=== PATIENT | male | born 1945 | race American Indian/Alaskan Native ===

== ENCOUNTER 2017-02-20 14:25 | Emergency (ER) | payer MEDICARE, OTHER ==
[2017-02-20] MEDS ORDERED: D50W (25GM) Syringe IV ONE ×2 (14:29→17:00)
[2017-02-20] MEDS ORDERED: NACL 0.9% 1000 ML 1,000 ML ONE (14:50)
[2017-02-20] MEDS ORDERED: NACL 0.9% 1000 ML 2,000 ML IV ONE (15:17)
--- NOTE | 2017-02-20 15:23 | Emergency Department Report ---
ED General Adult HPI - General Chief complaint: Cardiac Arrest/CPR Stated complaint: CARDIAC ARREST Time Seen by Provider: 02/20/17 15:13 Source: EMS (verbal report received from EMS.ems notes not available at time of chart dictation) Mode of arrival: Stretcher Limitations: Other - History of Present Illness Initial comments: This is a 71-year-old male who is brought to the hospital by EMS as an out of hospital cardiac arrest. EMS reports the patient had some point been complaining of abdominal pain and back pain. They report that his presenting rhythm was pulseless electrical activity. They report That they intubated the patient in the field, gave standard ACLS medications, gave aggressive chest compressions. They further report that prior to arrival to the hospital, the patient developed a shockable rhythm and was shocked, and then returned to a non-shockable rhythm, with no pulses. Upon arrival to the ER, the patient was pulseless, pupils were fixed and dilated to 6 mm. He received aggressive CPR, and standard ACLS interventions. Patient also found to be hypothermic, with a core temperature of 88.2. Patient started on active patient rewarming. He is started on aggressive IV fluids. After prolonged episode of CPR in the emergency room, return of spontaneous circulation is obtained. Blood pressure noted to be in the 90s to 120s, given hemodynamic volatility, an emergent right-sided internal jugular central line was placed by myself using ultrasound guidance with no obvious complications, with the exception of a hematoma. Patient started on norepinephrine, IV fluids, continued on active rewarming, and orders placed for broad-spectrum antibiotics. Patient then went to CT scan, and had a CT scan of the brain, cervical spine, chest, abdomen, pelvis. Discussed with cardiology on-call, Dr. Flores, who indicated that based on patient's prolonged downtime, and hypothermia, he was not a suitable candidate for emergency endovascular intervention or cardiac catheterization. Also discussed with critical care physician on-call, Dr. Hilario Estes, who initially agreed to place the patient into the intensive care unit. Patient continued to become more hypotensive, and norepinephrine was continued to be titrated. Unfortunately, patient coded again, and return of spontaneous circulation could not be obtained. Then received call from radiology that CT scan demonstrated pneumoperitoneum. Family was informed of patient's demise. -: Sudden Location: back, abdomen Quality: other (per hpi) Consistency: other (per hpi) Improves with: other (per hpi) Associated Symptoms: other (per hpi) ED Review of Systems ROS: Stated complaint: CARDIAC ARREST Other details as noted in HPI Comment: Unobtainable due to pts medical conditions ED Physical Exam - General Limitations: Other General appearance: obtunded, cachectic - Head Head exam: Present: atraumatic, normocephalic - Eye Eye exam: Present: other (pupils fixed, dilated, do not react to light) - ENT ENT exam: Present: mucous membranes dry, other (endotracheal tube is noted in oropharynx) - Neck Neck exam: Present: normal inspection - Respiratory Respiratory exam: Present: rhonchi. Absent: respiratory distress - Cardiovascular Cardiovascular Exam: Present: regular rate, normal rhythm. Absent: systolic murmur, diastolic murmur, rubs, gallop - GI/Abdominal GI/Abdominal exam: Present: soft, distended, hernia - Rectal Rectal exam: Present: normal inspection - exam: Present: other (bilateral inguinal hernias are noted) - Extremities Exam Extremities exam: Present: normal inspection - Back Exam Back exam: Present: normal inspection. Absent: tenderness, paraspinal tenderness - Neurological Exam Neurological exam: Present: altered, other (gcs of 3) - Psychiatric Psychiatric exam: Present: other (non verbal) - Skin Skin exam: Present: warm ED Course Vital Signs 02/20/17 15:31 Pulse Rate 79 Blood Pressure 94/59 - Central Line Placement Right IJ Consent Obtained: emergent situation Time Out Performed: Yes Patient Placed on Monitor/Pulse Ox: Yes Prep: mask Central Line Prep: Povidone-Iodine 1%, Chlorhexidine scrub, sterile drapes applied Ultrasound Used for Placement: Yes Central Line Lumen Inserted: triple Bloods Obtained for Lab: Yes Central Line Position: good blood return, all ports aspirated, flus, sutured in place with 2-0 Dressing Applied: Tegaderm Post Procedure X-Ray: tip of catheter in good p Patient Tolerated Procedure: well Complications: hematoma at puncture site ED Medical Decision Making - Lab Data Result diagrams: 02/20/17 15:55 02/20/17 15:55 Vital Signs 02/20/17 15:31 Pulse Rate 79 Blood Pressure 94/59 Lab Results 02/20/17 02/20/17 02/20/17 Range/Units 15:22 15:55 15:55 WBC 6.4 (4.5-11.0) K/mm3 RBC 4.24 (3.65-5.03) M/mm3 Hgb 12.6 (11.8-15.2) gm/dl Hct 40.1 (35.5-45.6) % MCV 95 H (84-94) fl MCH 30 (28-32) pg MCHC 31 L (32-34) % RDW 17.5 H (13.2-15.2) % Plt Count 201 (140-440) K/mm3 Add Manual Diff Complete Total Counted 100 Seg Neuts % (Manual) 2.0 L (40.0-70.0) % Band Neutrophils % 40.0 % Lymphocytes % (Manual) 32.0 (13.4-35.0) % Reactive Lymphs % (Man) 0 % Monocytes % (Manual) 9.0 H (0.0-7.3) % Eosinophils % (Manual) 0 (0.0-4.3) % Basophils % (Manual) 1.0 (0.0-1.8) % Metamyelocytes % 16.0 % Myelocytes % 0 % Promyelocytes % 0 % Blast Cells % 0 % Nucleated RBC % Not Reportable Seg Neutrophils # Man 0.1 L (1.8-7.7) K/mm3 Band Neutrophils # 2.6 K/mm3 Lymphocytes # (Manual) 2.0 (1.2-5.4) K/mm3 Abs React Lymphs (Man) 0.0 K/mm3 Monocytes # (Manual) 0.6 (0.0-0.8) K/mm3 Eosinophils # (Manual) 0.0 (0.0-0.4) K/mm3 Basophils # (Manual) 0.1 (0.0-0.1) K/mm3 Metamyelocytes # 1.0 K/mm3 Myelocytes # 0.0 K/mm3 Promyelocytes # 0.0 K/mm3 Blast Cells # 0.0 K/mm3 WBC Morphology Not Reportable Hypersegmented Neuts Not Reportable Hyposegmented Neuts Not Reportable Hypogranular Neuts Not Reportable Smudge Cells Not Reportable Toxic Granulation Not Reportable Toxic Vacuolation Not Reportable Dohle Bodies Not Reportable Pelger-Huet Anomaly Not Reportable Shawna Rods Not Reportable Platelet Estimate Consistent w auto Clumped Platelets Not Reportable Plt Clumps, EDTA Not Reportable Large Platelets Not Reportable Giant Platelets Few Platelet Satelliting Not Reportable Plt Morphology Comment Not Reportable RBC Morphology Not Reportable Dimorphic RBCs Not Reportable Polychromasia Not Reportable Hypochromasia Not Reportable Poikilocytosis 1+ Anisocytosis Not Reportable Microcytosis Not Reportable Macrocytosis Not Reportable Spherocytes Not Reportable Pappenheimer Bodies Not Reportable Sickle Cells Not Reportable Target Cells Not Reportable Tear Drop Cells Not Reportable Ovalocytes Few Helmet Cells Not Reportable Reynoso-Eldon Bodies Not Reportable [place] Rings Not Reportable [place] Cells Not Reportable Bite Cells Not Reportable Crenated Cell Not Reportable Elliptocytes Not Reportable Acanthocytes (Spur) Not Reportable Rouleaux Not Reportable Hemoglobin C Crystals Not Reportable Schistocytes Not Reportable Malaria parasites Not Reportable Kyree Bodies Not Reportable Hem Pathologist Commnt No PT 36.1 H (12.2-14.9) Sec. INR 3.36 H (0.87-1.13) APTT 60.4 H* (24.2-36.6) Sec. Sodium (137-145) mmol/L Potassium (3.6-5.0) mmol/L Chloride (98-107) mmol/L Carbon Dioxide (22-30) mmol/L Anion Gap mmol/L BUN (9-20) mg/dL Creatinine (0.8-1.5) mg/dL Estimated GFR ml/min BUN/Creatinine Ratio % Glucose (75-100) mg/dL Lactic Acid (0.7-2.0) mmol/L Calcium (8.4-10.2) mg/dL Total Bilirubin (0.1-1.2) mg/dL AST (5-40) units/L ALT (7-56) units/L Alkaline Phosphatase (35-129) units/L Troponin T (0.00-0.029) ng/mL Total Protein (6.3-8.2) g/dL Albumin (3.9-5) g/dL Albumin/Globulin Ratio % Triglycerides (2-149) mg/dL Cholesterol (50-199) mg/dL LDL Cholesterol Direct (50-130) mg/dL HDL Cholesterol (40-59) mg/dL Cholesterol/HDL Ratio % TSH (0.270-4.200) mlU/mL Free T4 (0.76-1.46) ng/dL Salicylates (2.8-20.0) mg/dL Acetaminophen (10.0-30.0) ug/mL Blood Type B POSITIVE Antibody Screen Negative 02/20/17 02/20/17 02/20/17 Range/Units 15:55 15:55 15:55 WBC (4.5-11.0) K/mm3 RBC (3.65-5.03) M/mm3 Hgb (11.8-15.2) gm/dl Hct (35.5-45.6) % MCV (84-94) fl MCH (28-32) pg MCHC (32-34) % RDW (13.2-15.2) % Plt Count (140-440) K/mm3 Add Manual Diff Total Counted Seg Neuts % (Manual) (40.0-70.0) % Band Neutrophils % % Lymphocytes % (Manual) (13.4-35.0) % Reactive Lymphs % (Man) % Monocytes % (Manual) (0.0-7.3) % Eosinophils % (Manual) (0.0-4.3) % Basophils % (Manual) (0.0-1.8) % Metamyelocytes % % Myelocytes % % Promyelocytes % % Blast Cells % % Nucleated RBC % Seg Neutrophils # Man (1.8-7.7) K/mm3 Band Neutrophils # K/mm3 Lymphocytes # (Manual) (1.2-5.4) K/mm3 Abs React Lymphs (Man) K/mm3 Monocytes # (Manual) (0.0-0.8) K/mm3 Eosinophils # (Manual) (0.0-0.4) K/mm3 Basophils # (Manual) (0.0-0.1) K/mm3 Metamyelocytes # K/mm3 Myelocytes # K/mm3 Promyelocytes # K/mm3 Blast Cells # K/mm3 WBC Morphology Hypersegmented Neuts Hyposegmented Neuts Hypogranular Neuts Smudge Cells Toxic Granulation Toxic Vacuolation Dohle Bodies Pelger-Huet Anomaly Shawna Rods Platelet Estimate Clumped Platelets Plt Clumps, EDTA Large Platelets Giant Platelets Platelet Satelliting Plt Morphology Comment RBC Morphology Dimorphic RBCs Polychromasia Hypochromasia Poikilocytosis Anisocytosis Microcytosis Macrocytosis Spherocytes Pappenheimer Bodies Sickle Cells Target Cells Tear Drop Cells Ovalocytes Helmet Cells Reynoso-Eldon Bodies [place] Rings [place] Cells Bite Cells Crenated Cell Elliptocytes Acanthocytes (Spur) Rouleaux Hemoglobin C Crystals Schistocytes Malaria parasites Kyree Bodies Hem Pathologist Commnt PT (12.2-14.9) Sec. INR (0.87-1.13) APTT (24.2-36.6) Sec. Sodium 137 (137-145) mmol/L Potassium > 9.9 H* (3.6-5.0) mmol/L Chloride 89.3 L (98-107) mmol/L Carbon Dioxide 14 L (22-30) mmol/L Anion Gap 44 mmol/L BUN 39 H (9-20) mg/dL Creatinine 3.5 H (0.8-1.5) mg/dL Estimated GFR 21 ml/min BUN/Creatinine Ratio 11 % Glucose 290 H (75-100) mg/dL Lactic Acid 21.60 H* (0.7-2.0) mmol/L Calcium 7.1 L (8.4-10.2) mg/dL Total Bilirubin 0.30 (0.1-1.2) mg/dL AST 295 H (5-40) units/L ALT 147 H (7-56) units/L Alkaline Phosphatase 60 (35-129) units/L Troponin T 0.030 H (0.00-0.029) ng/mL Total Protein 3.9 L (6.3-8.2) g/dL Albumin 2.1 L (3.9-5) g/dL Albumin/Globulin Ratio 1.2 % Triglycerides 67 (2-149) mg/dL Cholesterol 77 (50-199) mg/dL LDL Cholesterol Direct 9 L (50-130) mg/dL HDL Cholesterol 55 (40-59) mg/dL Cholesterol/HDL Ratio 1.40 % TSH (0.270-4.200) mlU/mL Free T4 0.69 L (0.76-1.46) ng/dL Salicylates (2.8-20.0) mg/dL Acetaminophen (10.0-30.0) ug/mL Blood Type Antibody Screen 02/20/17 02/20/17 02/20/17 Range/Units 15:55 15:55 15:55 WBC (4.5-11.0) K/mm3 RBC (3.65-5.03) M/mm3 Hgb (11.8-15.2) gm/dl Hct (35.5-45.6) % MCV (84-94) fl MCH (28-32) pg MCHC (32-34) % RDW (13.2-15.2) % Plt Count (140-440) K/mm3 Add Manual Diff Total Counted Seg Neuts % (Manual) (40.0-70.0) % Band Neutrophils % % Lymphocytes % (Manual) (13.4-35.0) % Reactive Lymphs % (Man) % Monocytes % (Manual) (0.0-7.3) % Eosinophils % (Manual) (0.0-4.3) % Basophils % (Manual) (0.0-1.8) % Metamyelocytes % % Myelocytes % % Promyelocytes % % Blast Cells % % Nucleated RBC % Seg Neutrophils # Man (1.8-7.7) K/mm3 Band Neutrophils # K/mm3 Lymphocytes # (Manual) (1.2-5.4) K/mm3 Abs React Lymphs (Man) K/mm3 Monocytes # (Manual) (0.0-0.8) K/mm3 Eosinophils # (Manual) (0.0-0.4) K/mm3 Basophils # (Manual) (0.0-0.1) K/mm3 Metamyelocytes # K/mm3 Myelocytes # K/mm3 Promyelocytes # K/mm3 Blast Cells # K/mm3 WBC Morphology Hypersegmented Neuts Hyposegmented Neuts Hypogranular Neuts Smudge Cells Toxic Granulation Toxic Vacuolation Dohle Bodies Pelger-Huet Anomaly Shawna Rods Platelet Estimate Clumped Platelets Plt Clumps, EDTA Large Platelets Giant Platelets Platelet Satelliting Plt Morphology Comment RBC Morphology Dimorphic RBCs Polychromasia Hypochromasia Poikilocytosis Anisocytosis Microcytosis Macrocytosis Spherocytes Pappenheimer Bodies Sickle Cells Target Cells Tear Drop Cells Ovalocytes Helmet Cells Reynoso-Eldon Bodies [place] Rings Cre[place]on Cells Bite Cells Crenated Cell Elliptocytes Acanthocytes (Spur) Rouleaux Hemoglobin C Crystals Schistocytes Malaria parasites Kyree Bodies Hem Pathologist Commnt PT (12.2-14.9) Sec. INR (0.87-1.13) APTT (24.2-36.6) Sec. Sodium (137-145) mmol/L Potassium (3.6-5.0) mmol/L Chloride (98-107) mmol/L Carbon Dioxide (22-30) mmol/L Anion Gap mmol/L BUN (9-20) mg/dL Creatinine (0.8-1.5) mg/dL Estimated GFR ml/min BUN/Creatinine Ratio % Glucose (75-100) mg/dL Lactic Acid (0.7-2.0) mmol/L Calcium (8.4-10.2) mg/dL Total Bilirubin (0.1-1.2) mg/dL AST (5-40) units/L ALT (7-56) units/L Alkaline Phosphatase (35-129) units/L Troponin T (0.00-0.029) ng/mL Total Protein (6.3-8.2) g/dL Albumin (3.9-5) g/dL Albumin/Globulin Ratio % Triglycerides (2-149) mg/dL Cholesterol (50-199) mg/dL LDL Cholesterol Direct (50-130) mg/dL HDL Cholesterol (40-59) mg/dL Cholesterol/HDL Ratio % TSH 13.750 H (0.270-4.200) mlU/mL Free T4 (0.76-1.46) ng/dL Salicylates 3.2 (2.8-20.0) mg/dL Acetaminophen < 15.0 (10.0-30.0) ug/mL Blood Type Antibody Screen Laboratory studies resulted after patient , please note that this provided was not contacted by the lab for hyperkalemia. - EKG Data -: EKG Interpreted by Fl EKG shows normal: sinus rhythm - EKG Data When compared to previous EKG there are: previous EKG unavailable - Radiology Data Radiology results: report reviewed, image reviewed Critical Care Time: Yes Critical care time in (mins) excluding proc time.: 60 Critical care attestation.: If time is entered above; I have spent that time in minutes in the direct care of this critically ill patient, excluding procedure time. ED Disposition Clinical Impression: Cardiac arrest Disposition: DC-20 Is pt being admited?: No Does the pt Need Aspirin: No Condition: Good Referrals: MANDA MORAN MD [Primary Care Provider] - 3-5 Days
[2017-02-20 15:37] VITALS: BP 94/59
[2017-02-20] MEDS ORDERED: MAXIPIME 1 GM in NACL 0.9% 20 ML IV ONE (16:00)
[2017-02-20] MEDS ORDERED: PROTONIX IV ONE (16:00)
[2017-02-20] MEDS ORDERED: fentaNYL DRIP Premix 2,000 MCG/100 ML BAG IV SCH (16:00)
[2017-02-20] MEDS ORDERED: VANCOMYCIN/NS 1 GM/250 ML 1 GM/250 ML BAG IV ONE (16:00)
[2017-02-20] MEDS ORDERED: LEVOPHED DRIP 4 MG/NS 250 ML 4 MG/250 ML BAG IV SCH (16:00)
[2017-02-20 16:18] LABS: Hematocrit 40.1 % (35.5-45.6); Hemoglobin 12.6 gm/dl (11.8-15.2); Mean Corpuscular HGB Conc 31 % (32-34); Mean Corpuscular Hemoglobin 30 pg (28-32); Mean Corpuscular Volume 95 fl (84-94); Red Blood Count 4.24 M/mm3 (3.65-5.03); Red Cell Distribution Width 17.5 % (13.2-15.2)
[2017-02-20 16:20] LABS: Platelet Count 201 K/mm3 (140-440)
[2017-02-20 16:29] LABS: INR 3.36 (0.87-1.13)
[2017-02-20 16:40] LABS: Alanine Aminotransferase 147 units/L (7-56); Albumin 2.1 g/dL (3.9-5); BUN/Creatinine Ratio 11; Blood Urea Nitrogen 39 mg/dL (9-20); Calcium 7.1 mg/dL (8.4-10.2); Hemolysis Index 35
[2017-02-20 16:51] LABS: Partial Thromboplastin Time 60.4 Sec. (24.2-36.6)
--- NOTE | 2017-02-20 16:53 | Cat Scan Report ---
FINAL REPORT EXAM: CT HEAD/BRAIN WO CON HISTORY: cpr arrest TECHNIQUE: CT head without contrast PRIORS: None. FINDINGS: No acute intra-axial or extra-axial hemorrhage is identified. There is no evidence of midline shift or mass effect. The ventricles and sulci are within normal limits. Grubbs-white matter differentiation is intact. No acute parenchymal abnormalities seen. Bony calvarium is grossly intact. There is increased density within ethmoid air cells IMPRESSION: No acute intracranial findings Chronic ethmoid sinusitis
--- NOTE | 2017-02-20 16:54 | Cat Scan Report ---
FINAL REPORT EXAM: CT CERVICAL SPINE WO CON HISTORY: cpr arrest TECHNIQUE: CT cervical spine with reconstructions PRIORS: None. FINDINGS: Vertebral bodies demonstrate normal height and alignment. There is disc space narrowing C5-C6 with anterior and posterior osteophyte the facet joints demonstrate normal alignment. The spinous processes are intact. Craniocervical junction is unremarkable. C1 and C2 are intact. IMPRESSION: Degenerative disc disease at C5-C6 No acute abnormality seen.
--- NOTE | 2017-02-20 16:58 | Cat Scan Report ---
FINAL REPORT EXAM: CT CHEST WO CON HISTORY: cpr arrest TECHNIQUE: CT chest without contrast PRIORS: None. FINDINGS: No evidence for mediastinal mass or pathologic lymph node enlargement. Nonenhanced images of the heart and great vessels are unremarkable. Noted is bilateral pulmonary interstitial prominence. Streaky opacities consistent with areas of atelectasis noted in lower lobes. There are minimal bilateral pleural effusions effusions No acute skeletal findings IMPRESSION: Bilateral lower lobe areas of subsegmental atelectasis Minimal pleural effusions pulmonary interstitial prominence could reflect chronic interstitial lung disease versus edema.
[2017-02-20] MEDS ORDERED: SODIUM BICARBONATE IV ONE (17:00)
[2017-02-20] MEDS ORDERED: CALCIUM CHLORIDE IV ONE (17:00)
[2017-02-20] MEDS ORDERED: ADRENALIN ONE (17:00)
[2017-02-20] MEDS ORDERED: D5W IV ONE (17:00)
--- NOTE | 2017-02-20 17:00 | Cat Scan Report ---
FINAL REPORT EXAM: CT ABDOMEN PELVIS WO CON HISTORY: cpr arrest TECHNIQUE: CT of the abdomen and pelvis without contrast PRIORS: None. FINDINGS: There pneumoperitoneum with large amount of free air within the abdomen. Air collections extend into bilateral inguinal hernias. Moderate amount of ascites present. Kidneys demonstrate no evidence for hydronephrosis Nonenhanced images of the liver spleen and pancreas are unremarkable. Moderate amount of stool and gas present within the colon. No evidence for small bowel distention No acute skeletal findings. IMPRESSION: Pneumoperitoneum with large amount of free air present Moderate ascites Bilateral hernias noted with air extending into the hernia sacs.
--- NOTE | 2017-02-20 17:05 | XRay Report ---
FINAL REPORT PROCEDURE: XR CHEST 1V AP TECHNIQUE: Chest radiograph anteroposterior view. CPT 55266 HISTORY: Chest pain. COMPARISON: No prior studies are available for comparison. FINDINGS: Heart: Normal. Mediastinum/Vessels: Aortic tortuosity and calcification. Lungs/Pleural space: Subtle perihilar indistinctness and peribronchial thickening. Curvilinear line overlies left thorax, lung markings seen distal to this. Bony thorax: Degenerative changes of the spine.. Life support devices: Endotracheal tube tip midway between clavicles and graham. Central venous catheter tip in the SVC. Defibrillating pad overlies the right thorax. Other: There is a significant amount of free intraperitoneal air. IMPRESSION: Tubes and lines as above. Subtle perihilar indistinctness and peribronchial thickening, consider mild congestive heart failure or pneumonitis. Curvilinear line overlies the left thorax, likely skin fold but difficult to completely exclude pneumothorax. Consider attention on followup radiographs or CT scan if there is continued clinical concern. Significant free intraperitoneal air. Findings concerning for perforated viscus. Critical results discussed by telephone with Dr. Healy by telephone at 3:50 p.m. central standard time on 03/02/2017.
[2017-02-20 17:09] LABS: HDL Cholesterol 55 mg/dL (40-59); LDL Cholesterol,Direct 9 mg/dL (50-130)
[2017-02-20 17:34] LABS: Band Neutrophils # (Manual) 2.6 K/mm3; Eosinophils % (Manual) 0 % (0.0-4.3); Total Cells Counted 100
[2017-02-20 17:35] LABS: Poikilocytosis 1+
[2017-02-20 17:36] LABS: Giant Platelets Few; Ovalocytes Few
[2017-02-20 17:37] LABS: Platelet Estimate Consistent w Auto
== END 2017-02-20 18:43 ==
LOC: ED 14:25
DX: I46.9 Cardiac arrest, cause unspecified (principal)
CPT/HCPCS: 36415; 36556; 70450; 71045; 71250; 72125; 74176; 80053; 80061; 82140; 84439; 84443; 84484; 85007; 85025; 85610; 85730; 86850; 86900; 86901; 87040; 92950; 93005; 93010; 99291; C9113; G0480; J0171; J3370; J7030; 80320; 94002; J0692; J3010